=== PATIENT | male | born 1970 | race Caucasian/White ===

== ENCOUNTER 2017-08-05 01:57 | Emergency (ER) | payer BC ==
[2017-08-05] MEDS ORDERED: NS 1,000 ML IV ONE ×3 (02:11→06:05)
[2017-08-05] MEDS ORDERED: ONDANSETRON 4 MG/2 ML VIAL IVP ONE ×2 (02:11→02:25)
--- NOTE | 2017-08-05 02:12 | EDPHY ---
H & P Stated Complaint: exhustion s/p ironman Source: Patient, EMS - Personal History Current Tetanus/Diphtheria Vaccine: Unsure Current Tetanus Diphtheria and Acellular Pertussis (TDAP): Unsure - Medical/Surgical History Hx Asthma: No Hx Chronic Respiratory Disease: No Hx Diabetes: No Hx Cardiac Disease: No Hx Renal Disease: No Hx Cirrhosis: No Hx Alcoholism: No Hx HIV/AIDS: No Hx Splenectomy or Spleen Trauma: No - Social History Smoking Status: Former smoker Time Seen by Provider: 08/05/17 02:12 HPI/ROS: HPI CHIEF COMPLAINT: nausea, vomiting, syncope, IronMan HISTORY OF PRESENT ILLNESS: Patient is a 47-year-old male, otherwise healthy without any significant medical history presents who presents emergency room after he completed the iron man. He completed iron man around midnight. A after completing the iron man he got nauseous he laid on his back and vomited he had a syncopal episode. Denies any chest pain or shortness of breath. He went to the medical tent and was encouraged to come to the emergency room. He arrived by EMS. Upon arrival to the emergency room is hemodynamically stable no acute distress he does complain of nausea and appears dehydrated. Past Medical History: Denies medical history Past Surgical History: Denies surgical history Social History: Denies daily use drugs alcohol tobacco. Resides in [place]. Family History: Noncontributory ROS REVIEW OF SYSTEMS: A comprehensive 10 point review of systems is otherwise negative aside from elements mentioned in the history of present illness. Exam Constitutional nontoxic appearing, triage nursing summary reviewed, vital signs reviewed, awake/alert. Eyes normal conjunctivae and sclera, EOMI, PERRLA. HENT normal inspection, atraumatic, dry mucus membranes, no epistaxis, neck supple/ no meningismus, no raccoon eyes. Respiratory clear to auscultation bilaterally, normal breath sounds, no respiratory distress, no wheezing. Cardiovascular rate normal, regular rhythm, no murmur, no edema, distal pulses normal. Gastrointestinal soft, non-tender, no rebound, no guarding, normal bowel sounds, no distension, no pulsatile mass. Genitourinary no CVA tenderness. Musculoskeletal no midline vertebral tenderness, full range of motion, no calf swelling, no tenderness of extremities, no meningismus, good pulses, neurovascularly intact. Skin pink, warm, & dry, no rash, skin atraumatic. Neurologic awake, alert and oriented x 3, AAOx3, moves all 4 extremities equally, motor intact, sensory intact, CN II-XII intact, normal cerebellar, normal vision, normal speech. Psychiatric normal mood/affect. Heme/Lymph/Immune no lymphadenopathy. Differential Diagnosis: Includes but is not limited to in a particular order dehydration, electrolyte disturbance, renal failure, acute kidney injury, aspiration Medical Decision Making: Plan for this patient IV establishment IV fluid bolus 1 L normal saline, check sodium, check CK, check kidney function, EKG and chest x-ray and re-evaluate. Re-evaluation: 06: Re-evaluation at this time patient is resting comfortably. He feels much better. Patient received 2 L of fluid bolus here in emergency room. His creatinine improved from 2.2-1.6. His CK did trend down. Patient very here to be discharged however I have ordered him 1/3 L of fluid and will repeat his creatinine 1 more time and CK. If these continue improve I will allowed to go home. He feels well. Denies any pain anywhere. He is eager to be discharged. Patient also urinating multiple times here. Ambulatory with steady gait. I did encourage him drink lots of fluids today. Additionally return precautions discussed with me understands return emergency room if develops any worsening symptoms questions or concerns including worsening pain, fever, vomiting. ED x-ray chest one view negative for acute cardiopulmonary disease. EKG interpretation by me on record in [facility] system. Impression time of EKG 2:20 a.m., sinus rhythm rate of 80 or early re-gonzalo pattern appreciated. No acute ischemia. (Hawk Fritz) Constitutional: Initial Vital Signs Heart Rate 90 08/05/17 02:03 Respiratory Rate 16 08/05/17 02:03 Blood Pressure 125/78 H 08/05/17 02:03 O2 Sat (%) 95 08/05/17 02:03 O2 Delivery Mode Room Air Allergies/Adverse Reactions: cephalexin [From Keflex] Allergy (Verified 08/05/17 02:05) Medical Decision Making - Diagnostics Imaging Results: Imaging Impressions Chest X-Ray 08/05/17 02:12 Impression: Normal. Other Provider: The patient was signed out to me to review his final set of laboratory studies which demonstrate normalization of his renal function and continued decrease in his total CPK. The patient requested to be discharged from the emergency department. The patient will be discharged home per Dr. Fritz's instructions. (Surya Elaine) - Data Points Laboratory Results: Laboratory Results 08/05/17 02:00 08/05/17 07:46 08/05/17 08/05/17 08/05/17 07:46 04:50 04:10 WBC RBC Hgb Hct MCV MCH MCHC RDW Plt Count MPV Neut % (Auto) Lymph % (Auto) [place] % (Auto) Eos % (Auto) Baso % (Auto) Nucleat RBC Rel Count Absolute Neuts (auto) Absolute Lymphs (auto) Absolute Monos (auto) Absolute Eos (auto) Absolute Basos (auto) Absolute Nucleated RBC Immature Gran % Seg Neutrophils % Band Neutrophils % Lymphocytes % Monocytes % Eosinophils % Basophils % Metamyelocytes % Myelocytes % Promyelocytes % Blast Cells % Immature Gran # Absolute Seg Neuts Absolute Band Neuts Absolute Lymphocytes Absolute Monocytes Absolute Eosinophils Absolute Basophils Absolute Metamyelocyte Absolute Myelocytes Absolute Promyelocytes Absolute Plasma Cells RBC/WBC/PLT Morphology Absolute Blast Cells Plasma Cells % Platelet Estimate Sodium 136 mEq/L mEq/L 136 mEq/L mEq/L (135-145) (135-145) Potassium 4.6 mEq/L mEq/L 4.3 mEq/L mEq/L (3.3-5.0) (3.3-5.0) Chloride 106 mEq/L mEq/L 103 mEq/L mEq/L (97-110) (97-110) Carbon Dioxide 20 mEq/l L mEq/l 22 mEq/l mEq/l (22-31) (22-31) Anion Gap 10 mEq/L mEq/L 11 mEq/L mEq/L (8-16) (8-16) BUN 20 mg/dL mg/dL 23 mg/dL mg/dL (7-23) (7-23) Creatinine 1.1 mg/dL mg/dL 1.6 mg/dL H mg/dL (0.7-1.3) (0.7-1.3) Estimated GFR > 60 46 Glucose 105 mg/dL H mg/dL 123 mg/dL H mg/dL (70-100) (70-100) Calcium 8.5 mg/dL mg/dL 8.9 mg/dL mg/dL (8.5-10.4) (8.5-10.4) Magnesium Total Bilirubin Conjugated Bilirubin Unconjugated Bilirubin AST ALT Alkaline Phosphatase Creatine Kinase 4501 IU/L H IU/L 5293 IU/L H IU/L (0-224) (0-224) CK-MB (CK-2) Fraction Pending 40.70 ng/mL H ng/mL (0.00-4.55) CK-MB (CK-2) % Pending 0.8 % % (0.0-4.0) Creatine Kinase Interp Pending NEGATIVE (NEGATIVE) Total Protein Albumin Urine Color Urine Appearance Urine pH Ur Specific [place] Urine Protein Urine Ketones Urine Blood Urine Nitrate Urine Bilirubin Urine Urobilinogen Ur Leukocyte Esterase Urine RBC Urine WBC Ur Epithelial Cells Hyaline Casts Urine Mucus Urine Glucose 08/05/17 08/05/17 08/05/17 04:10 02:00 02:00 WBC 17.69 10^3/uL H 10^3/uL (3.80-9.50) RBC 5.20 10^6/uL 10^6/uL (4.40-6.38) Hgb 16.5 g/dL g/dL (13.7-17.5) Hct 47.4 % % (40.0-51.0) MCV 91.2 fL fL (81.5-99.8) MCH 31.7 pg pg (27.9-34.1) MCHC 34.8 g/dL g/dL (32.4-36.7) RDW 13.2 % % (11.5-15.2) Plt Count 284 10^3/uL 10^3/uL (150-400) MPV 9.4 fL fL (8.7-11.7) Neut % (Auto) Not Reported Lymph % (Auto) Not Reported [place] % (Auto) Not Reported Eos % (Auto) Not Reported Baso % (Auto) Not Reported Nucleat RBC Rel Count Not Reported Absolute Neuts (auto) Not Reported Absolute Lymphs (auto) Not Reported Absolute Monos (auto) Not Reported Absolute Eos (auto) Not Reported Absolute Basos (auto) Not Reported Absolute Nucleated RBC Not Reported Immature Gran % Not Reported Seg Neutrophils % 82.0 % % Band Neutrophils % 0 % % Lymphocytes % 8.0 % % Monocytes % 10.0 % % Eosinophils % 0 % % Basophils % 0 % % Metamyelocytes % 0 % % Myelocytes % 0 % % Promyelocytes % 0 % % Blast Cells % 0 % % Immature Gran # Not Reported Absolute Seg Neuts 14.51 10^/uL H 10^/uL (1.70-6.50) Absolute Band Neuts 0.00 10^3/uL 10^3/uL (0.00-0.70) Absolute Lymphocytes 1.42 10^3/uL 10^3/uL (1.00-3.00) Absolute Monocytes 1.77 10^3/uL H 10^3/uL (0.30-0.80) Absolute Eosinophils 0.00 10^3/uL L 10^3/uL (0.03-0.40) Absolute Basophils 0.00 10^3/uL L 10^3/uL (0.02-0.10) Absolute Metamyelocyte 0.00 10^3/mL 10^3/mL (0.00-0.00) Absolute Myelocytes 0.00 10^3/mL 10^3/mL (0.00-0.00) Absolute Promyelocytes 0.00 10^3/uL 10^3/uL (0.00-0.00) Absolute Plasma Cells 0.00 10^3/uL 10^3/uL (0.00-0.00) RBC/WBC/PLT Morphology NORMAL (NORMAL) Absolute Blast Cells 0.00 10^3/uL 10^3/uL (0.00-0.00) Plasma Cells % 0 % % Platelet Estimate ADEQUATE (ADEQ) Sodium 136 mEq/L mEq/L (135-145) Potassium 4.6 mEq/L mEq/L (3.3-5.0) Chloride 95 mEq/L L mEq/L (97-110) Carbon Dioxide 25 mEq/l mEq/l (22-31) Anion Gap 16 mEq/L mEq/L (8-16) BUN 25 mg/dL H mg/dL (7-23) Creatinine 2.2 mg/dL H mg/dL (0.7-1.3) Estimated GFR 32 Glucose 110 mg/dL H mg/dL (70-100) Calcium 10.0 mg/dL mg/dL (8.5-10.4) Magnesium 1.9 mg/dL mg/dL (1.6-2.3) Total Bilirubin 1.5 mg/dL H mg/dL (0.1-1.4) Conjugated Bilirubin 0.5 mg/dL mg/dL (0.0-0.5) Unconjugated Bilirubin 1.0 mg/dL mg/dL (0.0-1.1) AST 278 IU/L H IU/L (17-59) ALT 92 IU/L H IU/L (21-72) Alkaline Phosphatase 75 IU/L IU/L (38-126) Creatine Kinase 6542 IU/L H IU/L (0-224) CK-MB (CK-2) Fraction 62.70 ng/mL H ng/mL (0.00-4.55) CK-MB (CK-2) % 1.0 % % (0.0-4.0) Creatine Kinase Interp NEGATIVE (NEGATIVE) Total Protein 7.7 g/dL g/dL (6.3-8.2) Albumin 4.6 g/dL g/dL (3.5-5.0) Urine Color YELLOW Urine Appearance HAZY Urine pH 5.0 (5.0-7.5) Ur Specific [place] 1.017 (1.002-1.030) Urine Protein 2+ H (NEGATIVE) Urine Ketones TRACE H (NEGATIVE) Urine Blood 3+ H (NEGATIVE) Urine Nitrate NEGATIVE (NEGATIVE) Urine Bilirubin NEGATIVE (NEGATIVE) Urine Urobilinogen NEGATIVE EU EU (0.2-1.0) Ur Leukocyte Esterase NEGATIVE (NEGATIVE) Urine RBC 25-50 /hpf H /hpf (0-3) Urine WBC 10-15 /hpf H /hpf (0-3) Ur Epithelial Cells TRACE /lpf /lpf (NONE-1+) Hyaline Casts 25-50 /lpf H /lpf (0-1) Urine Mucus TRACE /lpf /lpf (NONE-1+) Urine Glucose NEGATIVE (NEGATIVE) Medications Given: Discontinued Medications Sodium Chloride (Ns) 1,000 mls @ 0 mls/hr IV EDNOW ONE; Wide Open PRN Reason: Protocol Stop: 08/05/17 02:12 Last Admin: 08/05/17 02:26 Dose: 1,000 mls Sodium Chloride (Ns) 1,000 mls @ 0 mls/hr IV ONCE ONE PRN Reason: Wide Open Stop: 08/05/17 02:44 Last Admin: 08/05/17 03:08 Dose: 1,000 mls Sodium Chloride (Ns) 1,000 mls @ 0 mls/hr IV ONCE ONE PRN Reason: Wide Open Stop: 08/05/17 06:06 Last Admin: 08/05/17 06:08 Dose: 1,000 mls Ondansetron HCl (Zofran) 4 mg IVP EDNOW ONE Stop: 08/05/17 02:12 Last Admin: 08/05/17 02:21 Dose: Not Given Ondansetron HCl (Zofran) 4 mg IVP EDNOW ONE Stop: 08/05/17 02:26 Last Admin: 08/05/17 02:26 Dose: 4 mg Departure - Departure Disposition: Home, Routine, Self-Care Clinical Impression: Dehydration Condition: Good Instructions: Dehydration (ED) Additional Instructions: 1. Drink lots of fluids stay well-hydrated 2. Return emergency room if you have worsening symptoms questions or concerns. Referrals: NONE *PRIMARY CARE P,. [Primary Care Provider] - As per Instructions
[2017-08-05 02:24] LABS: PLATELET COUNT 284 10^3/uL (150-400)
--- NOTE | 2017-08-05 02:30 | CPEKG ---
Heart Rate: 80 RR Interval: 750 P-R Interval: 160 QRSD Interval: 86 QT Interval: 416 QTC Interval: 480 P Monson: 68 QRS Monson: 47 T Wave Monson: 42 EKG Severity - BORDERLINE ECG - EKG Impression: SINUS RHYTHM EKG Impression: ST ELEV, PROBABLE NORMAL EARLY REPOL PATTERN EKG Impression: BORDERLINE PROLONGED QT INTERVAL Electronically Signed By: Hawk Fritz 05-Aug-2017 06:54:33
[2017-08-05 02:47] LABS: CREATINE KINASE 6542 IU/L (0-224)
[2017-08-05 05:49] LABS: CREATINE KINASE 5293 IU/L (0-224)
[2017-08-05 08:28] LABS: CREATINE KINASE 4501 IU/L (0-224)
[2017-08-05 08:46] VITALS: BP 130/77
== END 2017-08-05 08:46 | disposition home or self-care (01) ==
DX: E86.9 Volume depletion, unspecified (principal); Z87.891 Personal history of nicotine dependence
CPT/HCPCS: 96374; J2405